=== PATIENT | female | born 1985 | race Caucasian/White ===

== ENCOUNTER 2019-08-17 10:53 | Emergency (ER) | payer SELFPAY | END 2019-08-17 11:47 | disposition left against medical advice (07) | LOC: ERS 10:53 | DX: Z53.21 Procedure and treatment not carried out due to patient leaving prior to being seen by health care provider (principal) ==

== ENCOUNTER 2021-03-27 00:18 | Emergency (ER) | payer SELFPAY | END 2021-03-27 01:49 | disposition home or self-care (01) | LOC: ERS 00:18 | DX: L03.115 Cellulitis of right lower limb (principal); G43.909 Migraine, unspecified, not intractable, without status migrainosus; F17.210 Nicotine dependence, cigarettes, uncomplicated | CPT/HCPCS: 99283 ==

== ENCOUNTER 2021-04-11 19:26 | Emergency (ER) | payer SELFPAY ==
[2021-04-11] MEDS ORDERED: Fentanyl 100 MCG/2 ML VIAL ONE (19:49)
[2021-04-11] MEDS ORDERED: Ketorolac Tromethamine 30 MG/ML VIAL ONE (19:49)
== END 2021-04-11 20:00 | disposition home or self-care (01) ==
LOC: ERS 19:26
DX: H66.92 Otitis media, unspecified, left ear (principal); M26.602 Left temporomandibular joint disorder, unspecified; F17.210 Nicotine dependence, cigarettes, uncomplicated
CPT/HCPCS: 96372; 99283; J1885; J3010

== ENCOUNTER 2024-03-18 14:40 | Outpatient (CLI) | payer MEDICAID | END 2024-03-18 14:41 | disposition home or self-care (01) | LOC: BICMAMMO 14:40 | PROVIDERS: ATTEND Nurse Practitioner | DX: N63.13 Unspecified lump in the right breast, lower outer quadrant (principal) | CPT/HCPCS: 77066; G0279 ==

== ENCOUNTER 2024-07-19 12:59 | Emergency (ER) | payer BC, MEDICAID ==
[2024-07-19] MEDS ORDERED: Ketorolac Tromethamine 30 MG (1 mL) VIAL ONE ×2 (13:54→13:57)
[2024-07-19] MEDS ORDERED: Bupivacaine 0.5% 10 ML VIAL ONE (14:16)
[2024-07-19] MEDS ORDERED: Lidocaine 1% (PF) 30 ML VIAL ONE (14:17)
== END 2024-07-19 17:31 | disposition home or self-care (01) ==
LOC: ERS 12:59
DX: S52.572A Other intraarticular fracture of lower end of left radius, initial encounter for closed fracture (principal); W01.0XXA Fall on same level from slipping, tripping and stumbling without subsequent striking against object, initial encounter; Y99.0 Civilian activity done for income or pay; Z87.891 Personal history of nicotine dependence
CPT/HCPCS: 29105; 96372; J1885; J2001; J3490